=== PATIENT | female | born 1960 | race Caucasian/White ===

== ENCOUNTER 2017-10-12 07:19 | Day surgery (SDC) | payer OTHER ==
[~2017-10-12] VITALS: Ht 170.2 cm; Wt 84.0 kg
[2017-10-12 07:36] VITALS: BP 103/75; PULSE 79; RESP 20; TEMP 99.3; O2SAT 94
[2017-10-12 08:20] LABS: BASOPHIL % 0.6 % (0.0-2.0); EOSINOPHIL # 0.1 TH/MM3 (0-0.4); EOSINOPHIL % 3.1 % (0.0-4.0); HEMATOCRIT 35.8 % (35.0-46.0); HEMO FLAGS DIFF FINAL; LYMPH % 29.1 % (9.0-44.0); MEAN CELL VOLUME 92.4 FL (80.0-100.0); MEAN CORPUSCULAR HEMOGLOBIN 31.1 PG (27.0-34.0); MEAN CORPUSCULAR HGB CONC 33.7 % (32.0-36.0); MONO % 11.4 % (0.0-8.0); NEUT % 55.8 % (16.0-70.0); PLATELET COUNT 157 TH/MM3 (150-450); RED BLOOD COUNT 3.88 MIL/MM3 (4.00-5.30); RED CELL DISTRIBUTION WIDTH 12.9 % (11.6-17.2); WHITE BLOOD COUNT 3.5 TH/MM3 (4.0-11.0)
[2017-10-12 08:29] LABS: APTT (PATIENT) 25.2 SEC (24.3-30.1); INTERNATIONAL NORMALIZED RATIO 1.1 RATIO; PROTHROMBIN TIME - PATIENT 10.7 SEC (9.8-11.6)
[2017-10-12] MEDS ORDERED: LORA-392 PO (08:29)
[2017-10-12] MEDS ORDERED: ALPH200C4 PO (08:29)
[2017-10-12] MEDS ORDERED: MELA1TAB18 PO (08:29)
[2017-10-12] MEDS ORDERED: GABA300C5 PO (08:29)
[2017-10-12] MEDS ORDERED: TRAM50TA PO (08:29)
[2017-10-12] MEDS ORDERED: COLA100C5 (08:29)
[2017-10-12] MEDS ORDERED: VITA10002 PO (08:29)
[2017-10-12] MEDS ORDERED: DIPH25CA PO (08:29)
[2017-10-12] MEDS ORDERED: MELO15TA20 PO (08:29)
[2017-10-12 08:34] LABS: BICARBONATE 28.5 MEQ/L (21.0-32.0)
[2017-10-12] MEDS ORDERED: SODIUM CHLOR 0.9% 1000 ML INJ 1,000 ML IV SCH (09:00)
[2017-10-12 09:45] VITALS: BP 128/67; PULSE 60; RESP 20; TEMP 97.7; O2SAT 95
[2017-10-12 10:00] VITALS: BP 111/53; PULSE 59; RESP 20; O2SAT 96
--- NOTE | 2017-10-12 10:15 | RADRPT ---
EXAM DATE/TIME: 10/12/2017 09:00 [place] COMPARISON: No previous studies available for comparison. INDICATIONS : Patient with a history of numbness from her waist down her legs. MEDICAL HISTORY : None SURGICAL HISTORY : Rotator cuff Colon surgery ENCOUNTER: Initial ACUITY: 1 month PAIN SCORE: 0/10 LUMBAR PUNCTURE TIME: 0913 hours FLUORO TIME: 0.2 minutes IMAGE SERIES: 2 ACCESS LEVEL: L3-4 FLUID: 20 cc of clear CSF was collected and sent to the laboratory for analysis. PROCEDURE : 1. Fluoroscopic guided lumbar puncture. The risks, benefits and alternatives to the procedure were explained and verbal and written consent w as obtained. The site was prepped in sterile fashion. Full sterile technique was used, including ca p, mask, sterile gloves and gown and a large sterile sheet. Hand hygiene and 2% chlorhexidine and/or betadine/alcohol prep was utilized per protocol for cutaneous antisepsis. The skin and subcutaneous tissues were infiltrated with local anesthetic solution. With fluoroscopic guidance the lumbar thecal sac was punctured at the level above. The fluid describ ed above was removed without difficulty. The patient tolerated the procedure well and there were no complications. CONCLUSION: Uncomplicated fluoroscopically guided lumbar puncture. Tomás Stern MD on October 12, 2017 at 10:11 Board Certified Radiologist. This report was verified electronically.
[2017-10-12 11:03] LABS: CSF LYMPHOCYTES 0 %; CSF NEUTROPHILS 0 %; GROSS BLOOD TUBE #4 0 (0); SUPERNATE COLOR TUBE #4 CLEAR (CLEAR); VOLUME TUBE # 4 6.4 ML; WBC TUBE #4 0 /MM3 (0-10)
[2017-10-12 11:03] LABS: CSF LYMPHOCYTES 0 %; CSF NEUTROPHILS 0 %; GROSS BLOOD TUBE #1 0 (0); GROSS BLOOD TUBE #2 0 (0); GROSS BLOOD TUBE #3 0 (0); GROSS BLOOD TUBE #4 0 (0); SUPERNATE COLOR TUBE #1 CLEAR (CLEAR); SUPERNATE COLOR TUBE #2 CLEAR (CLEAR); SUPERNATE COLOR TUBE #3 CLEAR (CLEAR); SUPERNATE COLOR TUBE #4 CLEAR (CLEAR); VOLUME TUBE # 1 2.2 ML; VOLUME TUBE # 3 6.2 ML; VOLUME TUBE # 4 6.4 ML; WBC TUBE #1 0 /MM3 (0-10); WBC TUBE #4 0 /MM3 (0-10)
[2017-10-12 11:31] VITALS: BP 126/62; PULSE 62; RESP 20; O2SAT 97
[2017-10-13 13:48] LABS: HSV 1,PCR Negative (Negative)
[2017-10-14 19:52] LABS: VDRL CSF NON-REACTIVE (NON-REACTVE)
[2017-10-17 16:58] LABS: LYME IGG IMMUNOBLOT CSF None Detected bands (None Detected); LYME IGM IMMUNOBLOT CSF None Detected bands (None Detected)
[2017-10-17 23:52] LABS: OLIGOCLONAL BANDING CSF BANDS NOTED (NO BANDS)
== END 2017-10-12 11:30 | disposition home or self-care (01) ==
LOC: HROP 07:19 → HRIP 07:20 → HROP 11:30
PROVIDERS: ATTEND Specialist
DX: G95.9 Disease of spinal cord, unspecified (principal)
CPT/HCPCS: 62270; 77003; 80048; 82040; 82042; 82784; 82945; 83873; 83916; 84157; 85025; 85610; 85730; 86592; 86618; 86790; 87015; 87070; 87102; 87116; 87205; 87206; 87529; 88173; 89051; J7030